=== PATIENT | male | born 1955 | race Caucasian/White ===

== ENCOUNTER → 2017-08-18 | Outpatient (CLI) | payer BC, OTHER | END | disposition home or self-care (01) | LOC: CFH 13:25 | PROVIDERS: ATTEND Internal Medicine Cardiovascular Disease | DX: I08.2 Rheumatic disorders of both aortic and tricuspid valves (principal); I10 Essential (primary) hypertension; G45.9 Transient cerebral ischemic attack, unspecified | CPT/HCPCS: 93306 ==

== ENCOUNTER 2018-06-17 10:32 | Inpatient (IN) | payer BC ==
[~2018-06-17] VITALS: Ht 185.4 cm; Wt 105.0 kg
--- NOTE | 2018-06-17 11:48 | NUR ---
WEAKNESS NOTED OVER THAT PAST SEVEAL DAYS SAME FEELINGS WHEN HE HAD HIS CABG AO4 SKIN WARM AND DRY
[2018-06-17 12:15] LABS: ALANINE AMINOTRANSFERASE 32 U/L (12-78); ANION GAP 3 mmol/L (5-15); CHLORIDE 111 mmol/L (98-107)
[2018-06-17 12:18] LABS: BASOPHILS # (AUTO) 0.03 x10^3/uL (0-0.1); BASOPHILS % (AUTO) 1 % (0-1); EOSINOPHILS # (AUTO) 0.09 x10^3/uL (0-0.4); EOSINOPHILS % (AUTO) 2 % (1-7); LYMPHOCYTES # (AUTO) 1.89 x10^3/uL (1-3.4); LYMPHOCYTES % (AUTO) 32 % (22-44); MD NO; MEAN CORPUSCULAR HEMOGLOBIN 32.8 pg (27.5-34.5); MEAN CORPUSCULAR VOLUME 96.6 fL (81-97); MEAN PLATELET VOLUME 8.5 fL (7.4-10.4); MONOCYTES # (AUTO) 0.58 x10^3/uL (0.2-0.8); MONOCYTES % (AUTO) 10 % (2-9); NEUTROPHILS % (AUTO) 57 % (42-75); PLATELET COUNT 169 x10^3/uL (130-400); RED BLOOD COUNT 5.11 x10^6/uL (4.38-5.82); RED CELL DISTRIBUTION WIDTH 12.7 % (9.4-14.8)
[2018-06-17 12:20] LABS: ALKALINE PHOSPHATASE 71 U/L (45-117); BILIRUBIN,TOTAL 0.9 mg/dL (0.2-1.0); CREATININE 1.04 mg/dL (0.7-1.3); TOTAL PROTEIN 7.5 g/dL (6.4-8.2)
[2018-06-17] MEDS ORDERED: HEPARIN 5,000 UNITS/ML, 1ML IV ONE (13:00)
[2018-06-17] MEDS ORDERED: HEPARIN 5,000 UNITS/ML, 1ML ONE (13:00)
[2018-06-17] MEDS ORDERED: HEPARIN 25,000 UNITS/500ML PMX 500 ML ONE (13:00)
[2018-06-17] MEDS: HEPARIN 25,000 UNITS/500ML PMX 500 ML IV PRN (13:09)
[2018-06-17] MEDS ORDERED: SODIUM CHLORIDE 0.9% 1,000 ML IV SCH (13:30)
[2018-06-17 15:28] VITALS: BP 161/90
[2018-06-17 17:13] VITALS: BP 152/92
[2018-06-17] MEDS: METOPROLOL TARTRATE 25 MG TABLET PO SCH (17:13)
[2018-06-17] MEDS ORDERED: METO25TA35 PO (18:31)
[2018-06-17] MEDS ORDERED: ESCI10TA10 PO (18:31)
[2018-06-17] MEDS ORDERED: ASPI-496 PO (18:31)
[2018-06-17 19:00] VITALS: BP 129/82
[2018-06-17] MEDS: SODIUM CHLORIDE FLUSH 10ML SYR IVF SCH (20:25)
[2018-06-17] MEDS: HEPARIN 5,000 UNITS/ML, 1ML IV PRN (20:26)
[2018-06-17] MEDS ORDERED: ACETAMINOPHEN 325 MG TABLET PO PRN (21:00)
[2018-06-18 00:16] VITALS: BP 131/78
[2018-06-18 02:38] LABS: CHOL/HDL RATIO 4.9; LDL/HDL RATIO 3.2 (0.5-3.0)
[2018-06-18] MEDS: METOPROLOL TARTRATE 25 MG TABLET PO SCH ×2 (06:15→17:14)
[2018-06-18 07:19] VITALS: BP 129/81
[2018-06-18] MEDS: HEPARIN 25,000 UNITS/500ML PMX 500 ML IV PRN (07:36)
[2018-06-18] MEDS ORDERED: SODIUM CHLORIDE 0.9% 1,000 ML IV SCH ×2 (09:00→11:09)
[2018-06-18] MEDS ORDERED: CLOPIDOGREL 75 MG TABLET PO SCH (09:00)
[2018-06-18] MEDS ORDERED: ASPIRIN 325 MG TABLET PO SCH (09:00)
[2018-06-18] MEDS: SODIUM CHLORIDE FLUSH 10ML SYR IVF SCH ×2 (09:34→20:56)
[2018-06-18] MEDS: ESCITALOPRAM 10MG TABLET PO SCH (09:34)
[2018-06-18] MEDS: HEPARIN 5,000 UNITS/ML, 1ML IV PRN (09:42)
[2018-06-18] MEDS ORDERED: NITROGLYCERIN 0.4 MG BOTTLE (25 TABS) SL PRN (10:00)
[2018-06-18] MEDS ORDERED: MORPHINE SULFATE 4 MG/ML, 1ML IVPush PRN (10:00)
[2018-06-18] MEDS ORDERED: TICAGRELOR 90 MG TABLET ONE (10:23)
[2018-06-18] MEDS ORDERED: FENTANYL PF 100 MCG/2ML ONE (10:23)
[2018-06-18] MEDS ORDERED: MIDAZOLAM 1 MG/ML, 5ML ONE (10:23)
[2018-06-18] MEDS ORDERED: VERAPAMIL 2.5 MG/ML, 2ML ONE (10:24)
[2018-06-18] MEDS ORDERED: BIVALIRUDIN 250 MG ONE ×2 (10:24→11:01)
[2018-06-18] MEDS ORDERED: LIDOCAINE 1%, 20ML ONE (10:24)
[2018-06-18] MEDS ORDERED: ASPIRIN 325 MG TABLET EC ONE (10:59)
[2018-06-18] MEDS ORDERED: BIVALIRUDIN 250 MG in SODIUM CHLORIDE 0.9% 50 ML IV SCH (11:09)
[2018-06-18 12:59] VITALS: BP 138/81
[2018-06-18 18:39] VITALS: BP 130/72
[2018-06-18] MEDS: TICAGRELOR 90 MG TABLET PO SCH (20:56)
[2018-06-18] MEDS: ATORVASTATIN 80 MG TABLET PO SCH ×2 (20:56→20:58)
[2018-06-19 01:04] VITALS: BP 160/92
[2018-06-19 04:20] LABS: ANION GAP 6 mmol/L (5-15); CALCIUM 9.2 mg/dL (8.5-10.1); CHLORIDE 110 mmol/L (98-107)
[2018-06-19 04:23] LABS: CREATININE 0.98 mg/dL (0.7-1.3)
[2018-06-19] MEDS: METOPROLOL TARTRATE 25 MG TABLET PO SCH (05:34)
[2018-06-19 05:35] VITALS: BP 139/80
[2018-06-19 07:06] VITALS: BP 128/88
[2018-06-19] MEDS ORDERED: ASPIRIN 81 MG TABLET EC PO SCH (09:00)
[2018-06-19] MEDS: TICAGRELOR 90 MG TABLET PO SCH (09:25)
[2018-06-19] MEDS: ESCITALOPRAM 10MG TABLET PO SCH (09:25)
[2018-06-19] MEDS: SODIUM CHLORIDE FLUSH 10ML SYR IVF SCH (09:26)
[2018-06-19] MEDS ORDERED: NITR0.4T SL (09:52)
[2018-06-19] MEDS ORDERED: TICA90TA PO (09:52)
[2018-06-19] MEDS ORDERED: ACET325T14 PO (09:52)
== END 2018-06-19 12:59 | disposition home or self-care (01) | DRG 247 ==
LOC: ED 13:02 → EDIP 13:03 → ED 13:28 → 5SO 15:03 → DCLOUNGE 06-19 12:30
PROVIDERS: ADMIT Internal Medicine Cardiovascular Disease; ATTEND Internal Medicine Cardiovascular Disease
PROC: 027035Z Dilation of Coronary Artery, One Artery with Two Drug-eluting Intraluminal Devices, Percutaneous Approach (ICD-10-PCS; principal; 2018-06-18)
PROC: 4A023N7 Measurement of Cardiac Sampling and Pressure, Left Heart, Percutaneous Approach (ICD-10-PCS; 2018-06-18)
PROC: B2111ZZ Fluoroscopy of Multiple Coronary Arteries using Low Osmolar Contrast (ICD-10-PCS; 2018-06-18)
PROC: B2151ZZ Fluoroscopy of Left Heart using Low Osmolar Contrast (ICD-10-PCS; 2018-06-18)
PROC: B2131ZZ Fluoroscopy of Multiple Coronary Artery Bypass Grafts using Low Osmolar Contrast (ICD-10-PCS; 2018-06-18)
PROC: B2181ZZ Fluoroscopy of Left Internal Mammary Bypass Graft using Low Osmolar Contrast (ICD-10-PCS; 2018-06-18)
DX: I21.4 Non-ST elevation (NSTEMI) myocardial infarction (principal); T82.898A Other specified complication of vascular prosthetic devices, implants and grafts, initial encounter; E03.9 Hypothyroidism, unspecified; E78.5 Hyperlipidemia, unspecified; I25.10 Atherosclerotic heart disease of native coronary artery without angina pectoris; Y83.2 Surgical operation with anastomosis, bypass or graft as the cause of abnormal reaction of the patient, or of later complication, without mention of misadventure at the time of the procedure; F32.9 Major depressive disorder, single episode, unspecified; Z87.891 Personal history of nicotine dependence; Z95.1 Presence of aortocoronary bypass graft; Y92.89 Other specified places as the place of occurrence of the external cause
CPT/HCPCS: 36415; 93458; 99291; C9600; J3490; 71045; 80048; 80053; 80061; 83880; 84484; 85025; 85520; 93005; 93306; 99156; 99157; C1760; C1769; C1894; G0378; J0583; J1644; J2250; J3010; C1725; C1874; C1887; J7030; Q9967

== ENCOUNTER → 2019-12-07 | Outpatient (CLI) | payer MEDICARE, BC ==
[~2019-12-07] MED LIST: ACET325T14 PO; ASPI-496 PO; BIVALIRUDIN 250 MG ONE; ESCI10TA10 PO; METO25TA35 PO; NITR0.4T41 SL; PRAS10TA4 PO; TICA90TA PO
== END | disposition home or self-care (01) ==
LOC: CVU 12:08
PROVIDERS: ATTEND Internal Medicine Cardiovascular Disease
DX: I35.8 Other nonrheumatic aortic valve disorders (principal); I20.9 Angina pectoris, unspecified; Z95.1 Presence of aortocoronary bypass graft
CPT/HCPCS: 93306

== ENCOUNTER 2019-12-09 09:14 | Observation (INO) | payer MEDICARE, BC ==
[~2019-12-09] VITALS: Ht 182.9 cm; Wt 105.2 kg
[~2019-12-09 09:14] MED LIST changes: -BIVALIRUDIN 250 MG ONE; -PRAS10TA4 PO
[2019-12-09 09:55] VITALS: BP 143/95
[2019-12-09] MEDS ORDERED: SODIUM CHLORIDE 0.9% 1,000 ML IV SCH ×2 (10:00→13:00)
[2019-12-09] MEDS ORDERED: PRAS10TA4 PO (10:01)
[2019-12-09 10:34] LABS: ALANINE AMINOTRANSFERASE 20 U/L (12-78); ALBUMIN 3.7 g/dL (3.4-5.0); ANION GAP 7 mmol/L (5-15); CHLORIDE 112 mmol/L (98-107)
[2019-12-09 10:37] LABS: ALKALINE PHOSPHATASE 69 U/L (45-117); BILIRUBIN,TOTAL 0.5 mg/dL (0.2-1.0); CREATININE 1.02 mg/dL (0.7-1.3); TOTAL PROTEIN 7.3 g/dL (6.4-8.2)
[2019-12-09 11:01] LABS: BASOPHILS % (AUTO) 1 % (0-1); EOSINOPHILS % (AUTO) 2 % (1-7); LYMPHOCYTES % (AUTO) 31 % (22-44); MEAN CORPUSCULAR HEMOGLOBIN 31.6 pg (27.5-34.5); MEAN CORPUSCULAR HGB CONC 34.1 g/dL (33.2-36.2); MEAN PLATELET VOLUME 7.9 fL (7.4-10.4); MONOCYTES % (AUTO) 9 % (2-9); NEUTROPHILS % (AUTO) 58 % (42-75); PLATELET COUNT 182 x10^3/uL (130-400); RED BLOOD COUNT 4.93 x10^6/uL (4.38-5.82)
[2019-12-09 11:02] LABS: MD NO
[2019-12-09] MEDS ORDERED: FENTANYL PF 100 MCG/2ML ONE (11:07)
[2019-12-09] MEDS ORDERED: TICAGRELOR 90 MG TABLET ONE (11:08)
[2019-12-09] MEDS ORDERED: BIVALIRUDIN 250 MG ONE ×2 (11:08→12:50)
[2019-12-09] MEDS ORDERED: LIDOCAINE 2%, 20ML ONE (11:08)
[2019-12-09] MEDS ORDERED: MIDAZOLAM 1 MG/ML, 5ML ONE (11:08)
[2019-12-09] MEDS ORDERED: NITROGLYCERIN 30 MCG/ML, 20ML VIAL ONE (12:24)
[2019-12-09] MEDS ORDERED: PRASUGREL 10 MG TABLET ONE (12:49)
[2019-12-09] MEDS ORDERED: ASPIRIN 325 MG TABLET EC ONE (12:50)
[2019-12-09] MEDS ORDERED: ACETAMINOPHEN 325 MG TABLET PO PRN (13:00)
[2019-12-09] MEDS ORDERED: ONDANSETRON 2MG/ML, 2ML IVPush PRN (13:00)
[2019-12-09] MEDS ORDERED: NITROGLYCERIN SINGLE TAB 0.4 MG SL PRN (13:00)
[2019-12-09] MEDS ORDERED: PRASUGREL 10 MG TABLET PO SCH (13:00)
[2019-12-09] MEDS ORDERED: ZOLPIDEM 5MG TABLET PO PRN (13:00)
[2019-12-09] MEDS ORDERED: ASPIRIN 325 MG TABLET EC PO ONE (13:00)
[2019-12-09] MEDS ORDERED: BIVALIRUDIN 250 MG in SODIUM CHLORIDE 0.9% 50 ML IV SCH (13:00)
[2019-12-09 20:16] VITALS: BP 166/89
[2019-12-09] MEDS: METOPROLOL TARTRATE 25 MG TAB PO SCH (21:28)
[2019-12-10 01:47] VITALS: BP 119/71
[2019-12-10 05:37] LABS: ANION GAP 4 mmol/L (5-15); CALCIUM 8.5 mg/dL (8.5-10.1); CHLORIDE 109 mmol/L (98-107)
[2019-12-10 05:38] LABS: CREATININE 1.07 mg/dL (0.7-1.3)
[2019-12-10 08:45] VITALS: BP 133/80
[2019-12-10] MEDS: METOPROLOL TARTRATE 25 MG TAB PO SCH (08:55)
[2019-12-10] MEDS ORDERED: PRASUGREL 10 MG TABLET PO SCH ×2 (09:00)
[2019-12-10] MEDS ORDERED: ASPIRIN 81 MG TABLET EC PO SCH (09:00)
[2019-12-10] MEDS ORDERED: ESCITALOPRAM 10MG TABLET PO SCH (09:00)
== END 2019-12-10 10:35 | disposition home or self-care (01) ==
LOC: CACL 09:14 → ORIP 12:47 → 5SO 16:27 → DCLOUNGE 12-10 10:27
PROVIDERS: ADMIT Internal Medicine Cardiovascular Disease; ATTEND Internal Medicine Cardiovascular Disease
DX: I25.709 Atherosclerosis of coronary artery bypass graft(s), unspecified, with unspecified angina pectoris (principal); I25.82 Chronic total occlusion of coronary artery; I10 Essential (primary) hypertension; E78.5 Hyperlipidemia, unspecified; G45.9 Transient cerebral ischemic attack, unspecified; Z79.899 Other long term (current) drug therapy; Z95.1 Presence of aortocoronary bypass graft; Z98.61 Coronary angioplasty status
CPT/HCPCS: 36415; 80048; 80053; 85025; 93005; 93458; 99156; 99157; C1725; C1769; C1874; C1887; C1894; C9600; C9601; G0378; J0583; J2250; J3010; J3490; Q9967

== ENCOUNTER 2020-06-11 10:40 | Emergency (ER) | payer MEDICARE, BC ==
[~2020-06-11] VITALS: Ht 182.9 cm; Wt 108.1 kg
[~2020-06-11 10:40] MED LIST changes: +PRAS10TA4 PO
[2020-06-11 10:44] VITALS: BP 141/81
== END 2020-06-11 12:35 | disposition home or self-care (01) ==
LOC: ED 11:13
DX: H11.31 Conjunctival hemorrhage, right eye (principal)
CPT/HCPCS: 99282